=== PATIENT | male | born 1995 | race Caucasian/White ===

== ENCOUNTER → 2018-05-13 | Outpatient (CLI) | payer BC ==
[~2018-05-13] MED LIST: CEFADROXIL500 M1 PO
[2018-05-13 13:15] LABS: HEMATOCRIT 47.8 % (42.0-52.0); HEMOGLOBIN 16.4 g/dl (14.0-18.0); MEAN CELL VOLUME 87.9 fl (80.0-94.0); MEAN CORPUSCULAR HGB 30.1 pg (27.0-31.0); MEAN CORPUSCULAR HGB CONC 34.3 g/dl (33.0-37.0); MEAN PLATELET VOLUME 11.2 fl (9.6-12.3); RED BLOOD COUNT 5.44 10*6/uL (4.50-5.90); RED CELL DISTRI WIDTH 11.7 % (0-14.5); WHITE BLOOD COUNT 5.7 10*3/uL (4.8-10.8)
[2018-05-13 13:23] LABS: ALBUMIN 4.1 gm/dl (3.1-4.5); ALKALINE PHOSPHATASE 72 U/L (45-117); BUN 17 mg/dl (7-24); CHLORIDE 102 mmol/L (98-107); CHOLESTEROL 160 mg/dL (<200); CREATININE 0.98 mg/dL (0.70-1.30); HDL CHOLESTEROL 57 mg/dl (40-60); LDL CHOLESTEROL 86 mg/dL (9-159); POTASSIUM 3.8 mmol/L (3.5-5.1); SGOT/AST 12 IU/L (3-35); SGPT/ALT 20 U/L (12-78); SODIUM 138 mmol/L (136-145); TOTAL PROTEIN 7.6 gm/dL (6.4-8.2); TRIGLYCERIDES 86 mg/dl (<150); VLDL CHOLESTEROL 17 mg/dL (6-40)
== END | disposition home or self-care (01) ==
LOC: LAB 11:54
PROVIDERS: Family Medicine
DX: Z13.220 Encounter for screening for lipoid disorders (principal); L03.115 Cellulitis of right lower limb; L30.9 Dermatitis, unspecified; R53.83 Other fatigue

== ENCOUNTER → 2018-05-27 | Outpatient (CLI) | payer BC ==
[2018-05-27 12:56] LABS: BILIRUBIN, DIRECT 0.3 mg/dL (0.0-0.2)
== END | disposition home or self-care (01) ==
LOC: LAB 12:17
PROVIDERS: Family Medicine
DX: E80.6 Other disorders of bilirubin metabolism (principal)

== ENCOUNTER 2019-02-03 02:16 | Emergency (ER) | payer SELFPAY ==
[~2019-02-03] VITALS: Ht 182.8 cm; Wt 90.7 kg
[2019-02-03] MEDS ORDERED: SEPTDS PO (02:31)
== END 2019-02-03 02:42 | disposition home or self-care (01) ==
LOC: ED 02:16
DX: S80.811A Abrasion, right lower leg, initial encounter (principal); Z79.2 Long term (current) use of antibiotics; X58.XXXA Exposure to other specified factors, initial encounter; Y93.89 Activity, other specified; Y92.838 Other recreation area as the place of occurrence of the external cause; Y99.8 Other external cause status

== ENCOUNTER 2019-03-05 09:22 | Emergency (ER) | payer SELFPAY ==
[~2019-03-05] VITALS: Ht 182.8 cm; Wt 86.2 kg
[~2019-03-05 09:22] MED LIST changes: +SEPTDS PO
== END 2019-03-05 10:51 | disposition home or self-care (01) ==
LOC: ED 09:22
DX: S93.402A Sprain of unspecified ligament of left ankle, initial encounter (principal); X50.1XXA Overexertion from prolonged static or awkward postures, initial encounter; Y93.02 Activity, running; Y92.89 Other specified places as the place of occurrence of the external cause; Y99.8 Other external cause status